=== PATIENT | female | born 1980 | race African-American/Black ===

== ENCOUNTER 2020-01-22 11:15 | Emergency (ER) | payer SELFPAY ==
[~2020-01-22] VITALS: Ht 157.5 cm; Wt 106.6 kg
--- NOTE | 2020-01-22 13:40 | Emergency Department Note ---
History of Present Illnes History of Present Illness Chief Complaint: COVID PUI History of Present Illness This is a 39 year old female who is here for high blood pressure. He states she went to urgent care for COVISIDORO test who sent her here due to elevated blood pressure of 130s/108. The patient denies a history of hypertension. He states for the last 3 days she's had generalized weakness general malaise and not been able to smell or taste anything. She has had a nonproductive cough and chest pain which she describes as "soreness". The chest pain is worse with deep breaths and with range of motion of movement of her shoulders. Denies any shortness of breath. As he diaphoresis. She denies any nausea vomiting. She has no history of diabetes or hypercholesterolemia. No history of any coronary artery disease. Has denies a sore throat, runny nose or congestion Historian: Patient Arrival Mode: Car Correctional Corporal Required: No Onset (how long ago): day(s) Severity: unable to specify Onset quality: gradual Duration (how long): day(s) Timing of current episode: constant Progression: unchanged Chronicity: new Context: Denies recent surgery, Denies recent immobilization, Denies recent travel, Denies trauma/injury Relieving factors: none Exacerbating factors: none Past Medical/Family History Physician Review I have reviewed the patient's past medical and family history. Any updates have been documented here. Past Medical History Recent Fever: No Clinical Suspicion of Infectio: No New/Unexplained Change in Ment: No Past Medical History: Asthma, Cancer Past Surgical History: Hysterectomy Other Surgery: brain surgery for cancer 2003 Social History Smoking Cessation: Never Smoker Counseling Performed: No Alcohol Use: Occasional Any Illegal Drug Use: No Physically hurt or threatened: No Other Any Pre-Existing Lines (PICC,: No Review of Systems Review of Systems Constitutional: Reports malaise, Reports weakness; Denies chills, Denies diaphoresis, Denies fever EENTM: Denies ear discharge, Denies nose congestion, Denies throat pain, Denies throat swelling Cardiovascular: Reports as per HPI, Reports chest pain; Denies edema, Denies palpitations, Denies syncope Respiratory: Reports as per HPI; Denies dyspnea, Denies dyspnea on exertion Gastrointestinal: Reports no symptoms Genitourinary: Reports no symptoms Musculoskeletal: Reports as per HPI Integumentary: Reports no symptoms Neurological: Reports no symptoms Psychological: Reports no symptoms Endocrine: Reports no symptoms Hematological/Lymphatic: Reports no symptoms Review of other systems: All other systems negative Physical Exam Related Data Allergies: Coded Allergies: acetaminophen (Verified Allergy, Unknown, 01/22/20) amoxicillin (Verified Allergy, Unknown, 01/22/20) Triage Vital Signs Vital Signs Date Time Temp Pulse Resp B/P (MAP) Pulse Ox O2 Delivery O2 Flow Rate FiO2 01/22/20 11:32 98.9 72 18 125/74 100 Room Air Physical Exam CONSTITUTIONAL Constitutional: Present well-developed, Present well-nourished HENT HENT: Present normocephalic, Present atraumatic, Present oropharynx clear/moist HENT L/R: Present left TM normal, Present right TM normal, Present left canal normal, Present right canal normal, Present left ext ear normal, Present right ext ear normal EYES Eyes: Reports conjunctivae normal; Denies left eye discharge, Denies right eye discharge NECK Neck: Present ROM normal, Present supple PULMONARY Pulmonary: Present effort normal, Present breath sounds normal; Absent respiratory distress CARDIOVASCULAR Cardiovascular: Present regular rhythm, Present heart sounds normal, Present intact distal pulses, Present capillary refill normal, Present normal rate GASTROINTESTINAL Abdominal: Present soft, Present nontender GENITOURINARY SKIN Skin: Present warm; Absent rash MUSCULOSKELETAL Musculoskeletal: Present ROM normal; Absent edema NEUROLOGICAL Neurological: Present alert, Present oriented x 3 PSYCHOLOGICAL Psychological: Present mood/affect normal Assessment & Plan Medical Decision Making MDM Is over normal blood pressure was the restroom. She was instructed to make a log of her blood pressure readings with the daytime and associated activity and to take the log to her primary care physician. She was told to get a COVID test and self quarantine. Assessment & Plan Final Impression: (1) Viral illness Depart Disposition: HOME, SELF-CARE Last Vital Signs Date Time Temp Pulse Resp B/P (MAP) Pulse Ox O2 Delivery O2 Flow Rate FiO2 01/22/20 11:32 98.9 72 18 125/74 100 Room Air MUSHTAQ KAPOOR MD Jan 22, 2020 13:40
--- OUTSIDE RECORDS SUMMARY | 2020-01-22 21:16 | XMS REPORT ---
Author Author MAXIMILIAN VARGAS Organization Unknown Address Unknown Phone Care Team Providers Care Shine Worker Name Role Phone SAM MICHELLE PP Unavailable Reason for Referral No Reason for Referral was given. History of Present Illness No HPI available. 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 RINSE MOUTH AFTER USE.; Start Date: 03/12/2013 (Active) Allergies and Adverse Reactions * Codeine Derivatives (Active) * Acetaminophen CAPS (Active) * Clindamycin (Active) * Amoxicillin TABS (Active) * Tylenol TABS (Active) Past Medical History * History of Migraine Headache (346.90); (Resolved) * History of Asthma (493.90); (Resolved) Procedures Procedure Procedure Date Date Completed Status Craniotomy Tumor Removal - Complete - - Resolved Tubal Ligation - - Resolved Family History * Family history of Asthma (V17.5); (Active) * Family history of Eczema (Active) * Family history of Diabetes Mellitus (V18.0); (Active) * Family history of Hypertension (V17.49); (Active) * Family history of Heart Disease (V17.49); (Active) * No Family history of Cervical Cancer (Denied) * No Family history of Breast Cancer (Denied) * No Family history of Ovarian Cancer (Denied) * No Family history of Uterine Cancer (Denied) Social History * No History of Alcohol Use (Denied) * No History of Drug Use (Denied) * Never A Smoker (Active) * Never Drank Alcohol (Active) * Never Used Drugs (Active) Treatment Plan * Pap ThinPrep 02/04/2013 Routine * [H] GC /CT PCR 02/04/2013 Routine * [QL] HSV 1/2 IGG, HERPESELECT TYPE SPECIFIC AB 02/04/2013 Routine * [Q] HSV 1/2 IGM AB, IFA (SERUM) 02/04/2013 Routine * EKG (In Office) 03/03/2013 Routine * [QLH] RPR 03/16/2013 Routine * [QH] HIV AB, HIV 1/2, EIA, WITH REFLEXES 03/16/2013 Routine * [QH] HEPATITIS B SURFACE ANTIGEN W/REFL CONFIRM 03/16/2013 Routine * [QLH] HEPATITIS C ANTIBODY 03/16/2013 Routine * [N] 30 Day Event Monitor Recording 03/03/2013 Routine Advance Directives * No Advance Directives available. Encounters * AUDIT 03/18/2013
--- OUTSIDE RECORDS SUMMARY | 2020-01-22 21:16 | XMS REPORT | Continuity of Care Document ---
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 Family history of Ovarian Cancer (Denied) No Family history of Uterine Cancer (Denied) 03/25/2013 [facility] Family history of Asthma (V17.5); (Active) Family history of Eczema (Active) Family history of Diabetes Mellitus (V18.0); (Active) Family history of Hypertension (V17.49); (Active) Family history of Heart Disease (V17.49); (Active) No Family history of Cervical Cancer (Denied) No Family history of Breast Cancer (Denied) No Family history of Ovarian Cancer (Denied) No Family history of Uterine Cancer (Denied) 03/18/2013 [facility] Family history of Asthma (V17.5); (Active) Family history of Eczema (Active) Family history of Diabetes Mellitus (V18.0); (Active) Family history of Hypertension (V17.49); (Active) Family history of Heart Disease (V17.49); (Active) No Family history of Cervical Cancer (Denied) No Family history of Breast Cancer (Denied) No Family history of Ovarian Cancer (Denied) No Family history of Uterine Cancer (Denied) 03/16/2013 [facility] Family history of Asthma (V17.5); (Active) Family history of Eczema (Active) Family history of Diabetes Mellitus (V18.0); (Active) Family history of Hypertension (V17.49); (Active) Family history of Heart Disease (V17.49); (Active) No Family history of Cervical Cancer (Denied) No Family history of Breast Cancer (Denied) No Family history of Ovarian Cancer (Denied) No Family history of Uterine Cancer (Denied) 03/12/2013 [facility] Family history of Asthma (V17.5); (Active) Family history of Eczema (Active) Family history of Diabetes Mellitus (V18.0); (Active) Family history of Hypertension (V17.49); (Active) Family history of Heart Disease (V17.49); (Active) No Family history of Cervical Cancer (Denied) No Family history of Breast Cancer (Denied) No Family history of Ovarian Cancer (Denied) No Family history of Uterine Cancer (Denied) 03/05/2013 [facility] Advance Directives Order Name Results Value Date Source Advance Directives Advance Dir ectives No Advance Directives available. 10/23/2013 [facility] Advance Directives Advance Dir ectives No Advance Directives available. 10/13/2013 [facility] Advance Directives Advance Dir ectives No Advance Directives available. 06/05/2013 [facility] Advance Directives Advance Dir ectives No Advance Directives available. 05/12/2013 [facility] Advance Directives Advance Dir ectives No Advance Directives available. 05/11/2013 [facility] Advance Directives Advance Dir ectives No Advance Directives available. 04/13/2013 [facility] Advance Directives Advance Dir ectives No Advance Directives available. 04/06/2013 [facility] Advance Directives Advance Dir ectives No Advance Directives available. 03/25/2013 [facility] Advance Directives Advance Dir ectives No Advance Directives available. 03/25/2013 [facility] Advance Directives Advance Dir ectives No Advance Directives available. 03/18/2013 [facility] Advance Directives Advance Dir ectives No Advance Directives available. 03/16/2013 [facility] Advance Directives Advance Dir ectives No Advance Directives available. 03/12/2013 [facility] Advance Directives Advance Dir ectives No Advance Directives available. 03/05/2013 [facility] Functional Status No Data Provided for This Section
--- OUTSIDE RECORDS SUMMARY | 2020-01-22 21:16 | XMS REPORT ---
Author Author MAXIMILIAN VARGAS Organization Unknown Address Unknown Phone Care Team Providers Care Tray Line Supervisor Name Role Phone SAM MICHELLE PP Unavailable Reason for Referral No Reason for Referral was given. History of Present Illness No HPI available. 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 RINSE MOUTH AFTER USE.; Start Date: 03/12/2013 (Active) * NexIUM 40 MG Oral Capsule Delayed Release; Start Date: 04/06/2013 (Active) Allergies and Adverse Reactions * Codeine Derivatives (Active) * Acetaminophen CAPS (Active) * Clindamycin (Active) * Amoxicillin TABS (Active) * Tylenol TABS (Active) Past Medical History * History of Migraine Headache (346.90); (Resolved) * History of Asthma (493.90); (Resolved) * History of Esophageal Reflux (530.81); (Resolved) Procedures Procedure Procedure Date Date Completed [...] History of Drug Use (Denied) * Never Drank Alcohol (Active) * Never A Smoker (Active) * Never Used Drugs (Active) Treatment [...] No Advance Directives available. Encounters * AUDIT 04/13/2013
--- OUTSIDE RECORDS SUMMARY | 2020-01-22 21:16 | XMS REPORT ---
Author Author MAXIMILIAN VARGAS Organization Unknown Address Unknown Phone Care Team Providers Care Upholstery Tech Name Role Phone SAM MICHELLE PP Unavailable [...] No Advance Directives available. Encounters * AUDIT 04/06/2013 * EST, Provider: JEREMÍAS CHANDRA, Status: Daniele, Time: 10:20 AM 04/10/2013
--- OUTSIDE RECORDS SUMMARY | 2020-01-22 21:16 | XMS REPORT | Clinical Summary ---
Author Author [facility]aceuticalsS[facility] Address Unknown Phone Unavailable Care Team Providers Care Aeronautical Design Engineer Name Role Phone Renay Mckoy MD PCP [phone] Allergies Comments Active Allergy Reactions Severity Noted Date Amoxicillin Hives 11/30/2016 Codeine Hives 11/30/2016 Acetaminophen Hives 11/30/2016 Medications End Date Status Medication Sig Dispensed Refills Start Date Active fluticasone (FLOVENT HFA) Inhale 2 1 Inhaler 1 44 mcg/actuation inhaler puffs by 8 mouth via inhaler 2 (two) times daily Rinse mouth after each use. Active levalbuterol (XOPENEX 2 puffs 6 qh 1 Inhaler 5 HFA) 45 mcg/actuation PRN. 8 inhalerIndications: Mild intermittent asthma without complication Active predniSONE (DELTASONE) 20 40mg daily 8 tablet 0 MG tabletIndications: for 3 days, 8 Hives 20mg daily for 2 days then stop. Active Problems Problem Noted Date Vitamin D deficiency 08/27/2017 Gastroesophageal reflux disease without esophagitis 12/12/2016 Mild intermittent asthma 12/12/2016 Obesity (BMI 35.0-39.9 without comorbidity) 12/13/19 17 Seasonal allergic rhinitis due to pollen 12/12/2016 Encounters Care Team Description Date Type Specialty Renay Mckoy MD call for an appt. 01/22/2020 Telephone Internal Medicine after 01/21/2019 Family History Medical History Relation Name Comments Diabetes Maternal Aunt Heart disease Maternal Aunt Hypertension Maternal Aunt Diabetes Maternal Uncle Heart disease Maternal Uncle Hypertension Maternal Uncle Diabetes Mother Heart disease Mother Hypertension Mother Cancer Paternal Aunt Cancer Paternal Uncle Asthma Son Relation Name Status Comments Father Maternal Aunt Alive Maternal Grandfather Maternal Grandmother Maternal Uncle Alive Mother Alive Paternal Aunt Alive Paternal Grandfather Paternal Grandmother Paternal Uncle Alive Son Alive Social History Date Tobacco Use Types Packs/Day Years Used Never Smoker Smokeless Tobacco: Never Used Alcohol Use Drinks/Week oz/Week Comments No Sex Assigned at Date Recorded Not on file Industry Job Start Date Occupation Not on file Not on file Not on file Travel End Travel History Travel Start No recent travel history available. Last Filed Vital Signs Not on file Plan of Treatment Health Maintenance Due Date Last Done Comments PNEUMOCOCCAL VACCINE 2-64 11/15/1985 YEARS AT RISK (1 of 1 - PPSV23) LIPID PANEL 1999 CERVICAL CANCER SCREENING 11/15/2000 PAP ONLY (Age 21-65) INFLUENZA VACCINE (#1) 2020 Results Not on fileafter 01/21/2019 Insurance Payer Benefit Subscriber ID Type Phone Address Plan / Group [employer] - [employer] - xxxxxxxxx Comm SPECIAL [employer] TS
--- OUTSIDE RECORDS SUMMARY | 2020-01-22 21:16 | XMS REPORT ---
Author MAXIMILIAN Garber Organization Unknown Address Unknown Phone Care Team Providers Care Tool Room Lathe Operator Name Role Phone JEREMÍAS CHANDRA PP Unavailable Reason for Referral No Reason for Referral was given. History of Present Illness No HPI available. 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); (Active) * Routine Gynecological Exam With Cervical Pap Smear (V72.31); (Active) * Visit For: Screening Exam STD (V74.5); (Active) * Dysmenorrhea (625.3); (Active) * Palpitations (785.1); (Active) * Colonoscopy (Fiberoptic) Screening (V76.51); (Active) Medication * Topiramate 50 MG Oral Tablet; TAKE 1 TABLET TWICE DAILY.; Start Date: 03/04/2013; End Date: (Active) * Albuterol Sulfate (2.5 MG/3ML) 0.083% Inhalation Nebulization Solution; USE DIRECTED.; Start Date: 03/03/2013 (Active) * Flovent Diskus 50 MCG/BLIST Inhalation Aerosol Powder Breath Activated; USE ONE INHALATION TWICE A DAY; Start Date: 03/03/2013; End Date: (Active) Allergies and Adverse Reactions * Codeine [...] of Uterine Cancer (Denied) Social History * Never A Smoker (Active) * No History of Alcohol Use (Denied) * No History of Drug Use (Denied) Treatment Plan * Pap ThinPrep 02/04/2013 Routine * [H] GC /CT PCR 02/04/2013 Routine * [QL] HSV 1/2 IGG, HERPESELECT TYPE SPECIFIC AB 02/04/2013 Routine * [Q] HSV 1/2 IGM AB, IFA (SERUM) 02/04/2013 Routine * EKG (In Office) 03/03/2013 Routine * [N] 30 Day Event Monitor Recording 03/03/2013 Routine Advance Directives * No Advance Directives available. Encounters * AUDIT 03/05/2013 * EPG, Provider: MADELINE/,PRE-OP, Status: Daniele, Time: 1:00 PM 03/09/2013 * EST, Provider: ENRIQUE CABREAR, Status: Daniele, Time: 10:30 AM 04/28/2013
--- OUTSIDE RECORDS SUMMARY | 2020-01-22 21:16 | XMS REPORT ---
Author Author MAXIMILIAN VARGAS Organization Unknown Address Unknown Phone Care Team Providers Care Web Database Developer Name Role Phone SAM MICHELLE PP Unavailable [...] No Advance Directives available. Encounters * AUDIT 03/16/2013 * EST, Provider: ENRIQUE CABRERA, Status: Daniele, Time: 10:30 AM 04/28/2013
--- OUTSIDE RECORDS SUMMARY | 2020-01-22 21:16 | XMS REPORT ---
Author Author MAXIMILIAN GURROLA Organization Unknown Address Unknown Phone Care Team Providers Care Dehydrator Tender Name Role Phone IZABELA ERIK PP Unavailable Reason for Referral No Reason [...] (Metrorrhagia) (626.6); (Active) * Dizziness (780.4); (Active) Medication * Topiramate 50 MG Oral [...] No Advance Directives available. Encounters * AUDIT 03/25/2013 * LOTUS, Provider: MADELINE/,PRE-OP, Status: Pen, Time: 1:20 PM 03/30/2013
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
--- OUTSIDE RECORDS SUMMARY | 2020-01-22 21:17 | XMS REPORT ---
Author Author MAXIMILIAN Phelps Organization Unknown Address Unknown Phone Care Team Providers Care Manager Inventory Control Name Role Phone Sohail Phelps PP Unavailable Reason for Referral No Reason for Referral was given. History of Present Illness No HPI available. Problems * Vaginal Candidiasis (112.1); (Active) * Normal [...] Visit For: Preoperative Exam (V72.84); (Active) * Visit For: Postsurgical Exam (V67.00); (Active) * Migraine Headache (346.90); (Active) * Skin: A Rash (782.1); (Active) Medication * Topiramate 50 MG Oral Tablet; TAKE 1 TABLET TWICE DAILY.; Start Date: 03/04/2013; End Date: (Active) * Pulmicort Flexhaler 180 MCG/ACT Inhalation Aerosol Powder Breath Activated; INHALE 1 PUFF TWICE DAILY. RINSE MOUTH AFTER USE.; Start Date: 03/12/2013 (Active) * NexIUM 40 MG Oral Capsule Delayed Release; Start Date: 04/06/2013 (Active) * Ibuprofen 800 MG Oral Tablet; TAKE 1 TABLET EVERY 8 HOURS NEEDED.; Start Date: 04/24/2013; End Date: (Active) * Sertraline HCl 50 MG Oral Tablet; Start Date: 07/23/2013 (Active) * Topiramate 50 MG Oral Tablet; TAKE 1 TABLET EVERY 12 HOURS; Start Date: 07/23/2013; End Date: (Active) * Permethrin 5 % External Cream; MASSAGE INTO SKIN FROM HEAD TO SOLES OF FEET. WASH OFF AFTER 8-14 HOURS; Start Date: 10/09/2013; End Date: (Active) * HydrOXYzine HCl 25 MG Oral Tablet; TAKE 1 TABLET EVERY 8 HOURS PRN itching; Start Date: 10/09/2013; End Date: (Active) Allergies and Adverse Reactions [...] - Resolved Tubal Ligation - - Resolved Laparoscopy With Total Hysterectomy - - Resolved Salpingectomy - - Resolved Family History * Family [...] No Advance Directives available. Encounters * AUDIT 10/23/2013
--- OUTSIDE RECORDS SUMMARY | 2020-01-22 21:17 | XMS REPORT ---
Author Author MAXIMILIAN KAM Organization Unknown Address Unknown Phone Care Team Providers Care Press Operator Automatic Name Role Phone NEGIN LOUIE PP Unavailable Reason for Referral No Reason [...] * Visit For: Postsurgical Exam (V67.00); (Active) Medication * Topiramate 50 MG Oral [...] NEEDED.; Start Date: 04/24/2013; End Date: (Active) Allergies and Adverse Reactions [...] No Advance Directives available. Encounters * AUDIT 05/11/2013
--- OUTSIDE RECORDS SUMMARY | 2020-01-22 21:17 | XMS REPORT | Summary of Care ---
Author Author [facility] Outpatient Imaging [facility]mer[facility] Outpatient Imaging [facility] ro[facility]y Address Unknown Phone Unavailable Encounter [facility] Gabriele(FIN) [id number] Date(s): 08/21/17 - 08/21/17 [facility] Outpatient Imaging [place] [address] [place] [address] [phone] Encounter Diagnosis Encounter for screening mammogram for malignant neoplasm of breast (Final) - 08/23/17 Discharge Disposition: Home or Self Care Attending Physician: Landon West MD Vital Signs No data available for this section Problem List Condition Effective Dates Status Health Status Informan t Abdominal Active pain(Confirmed) Anal Active fissure(Confirmed) Asthma(Confirmed) Active Diverticulum(Confirm Resolved ed) Fibroids(Confirmed) Active GERD - Active Gastro-esophageal reflux disease(Confirmed) Hemorrhoids(Confirme Active d) Internal Resolved hemorrhoid(Confirmed ) Migraine(Confirmed) Active Allergies, Adverse Reactions, Alerts Substance Reaction Severity Status codeine Active clindamycin Hives Severe Active amoxicillin Active Tylenol Active Medications No data available for this section Results No data available for this section Immunizations Given and Recorded Vaccine Date Status Refusal Reason pneumococcal 23-valent vaccine 04/11/13 Given influenza virus vaccine, inactivated 04/11/13 G iven Procedures Procedure Date Related Diagnosis Body Site Status CHANDANA - Total abdominal hysterectomy 04/10/13 Com pleted 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 2Patient is single with three children. 3Patient denies alcohol use. Assessment and Plan No data available for this section
--- OUTSIDE RECORDS SUMMARY | 2020-01-22 21:17 | XMS REPORT ---
Author Author MAXIMILIAN CHANDRA Organization Unknown Address Unknown Phone Care Team Providers Care Felt Hat Flanging Operator Name Role Phone JEREMÍAS CHANDRA PP [...] No Advance Directives available. Encounters * AUDIT 05/12/2013
--- OUTSIDE RECORDS SUMMARY | 2020-01-22 21:17 | XMS REPORT ---
Author Author MAXIMILIAN PERRY Organization Unknown Address Unknown Phone Care Team Providers Care Wellness Assistant Name Role Phone ORLANDO, JOMAR PP Unavailable Reason for Referral No Reason [...] [QLH] HEPATITIS C ANTIBODY 03/16/2013 Routine * [QLH] CBC (INCLUDES DIFF/PLT) 03/25/2013 Routine * [N] 30 Day Event Monitor Recording 03/03/2013 Routine Advance Directives * No Advance Directives available. Encounters * AUDIT 03/25/2013 * JIMMYG, Provider: OB/,PRE-OP, Status: Pen, Time: 1:20 PM 03/30/2013
--- OUTSIDE RECORDS SUMMARY | 2020-01-22 21:17 | XMS REPORT ---
Author Author Admin, [employer] Organization Unknown Address Unknown Phone Unavailable PROBLEMS Condition Status Date Provider Notes Acute Stress Disorder active Leonel Masters Generalized anxiety disorder active Leonel Masters NEED PROPH VACCINATION W/UNSPEC COMB VACCINE active 7 Aurdis Harley MAJOR DEPRESSIVE DISORDER, RCR, MODERATE active Leonel Masters ASTHMA active Leonel Masters HEMORRHOIDS, HX OF active Leonel Masters GERD active Leonel Masters COMMON MIGRAINE active Leonel Masters NEED PROPH VACCINATION W/UNSPEC COMB VACCINE active 7 Aurdis Harley ENCOUNTERS Date Type Provider Location Encounter Diagn osis - Ambulatory Encounter Brittany Gillis [facility] UNK - Ambulatory Encounter Leonel Oneals Jg en Masters Ryan Elliott [facility] UNK - Ambulatory Encounter Leonel Masters Jg en Masters Ryan Elliott [facility] UNK - Ambulatory [facility] - Ambulatory Encounter Ava Adalberto [facility] UNK - Ambulatory Encounter [facility] UNK - Ambulatory Encounter Elicia sellers [facility] UNK - Ambulatory Encounter Tameka Fuentes [facility] UNK - Ambulatory Encounter Leonel s Leonel guerrero [facility] UNK - Ambulatory Encounter Leonel Masters K en Masters Ryan Grahammez [facility] Generalized anxiety disorder Acute Stress Disorder - Ambulatory Encounter Elicia sellers [facility] Contact [facility] UNK - Ambulatory Encounter Roya Muller Martha [facility] Contact [facility] UNK - Ambulatory Encounter Beena Lamb [facility] Contact Center UNK - Ambulatory Encounter Leonel Masters Jg en Masters Tameka Welsh [facility] UNK - Ambulatory Encounter Leonel Masters Jg en Masters Ale [facility] UNK - Ambulatory Encounter Leonel Masters Jg en Masters Jessica Parker [facility] UNK - Ambulatory Encounter Aurdis Harley Aurdis Harley [employer] [facility] UNK - Ambulatory Encounter Aurdis Harley Aur dis Harley [facility] NEED PROPH VACCINATION W/UNSPEC COMB VAC CINE - Ambulatory Encounter Leonel Masters Jg en Masters Maura Valdez [facility] UNK - Ambulatory Encounter Torreyerholden [facility] UNK - Ambulatory Encounter Leonel Masters Jg en Masters Saritha Khan [facility] UNK - Ambulatory Encounter Edilberto Marquez [facility] UNK - Ambulatory Encounter Ken tidwell [facility] UNK - Ambulatory Encounter Leonel Masters Jg en Masters LinkLog[employer]ba [facility] UNK - Ambulatory Encounter Leonel Masters Jg en Masters Neno Strange [facility] UNK - Ambulatory Encounter Samina Goff [facility] UNK - Ambulatory Encounter Leonel Gregorio en Masters Nenogrey Strange [facility] UNK - Ambulatory Encounter Edilberto Marquez [facility] UNK - Ambulatory Encounter Ken Lamb [facility] UNK - Ambulatory Encounter Leonel Gregorio en Masters LinkLogbeba [facility] UNK - Ambulatory Encounter Leonel Gregorio en Masters Bruno Tobar [facility] UNK - Ambulatory Encounter Leonel guerrero [facility] UNK - Ambulatory Encounter Leonel Gregorio en Masters Tameka Welsh [facility] COMMON MIGRAINEGERDHEMORRHOI DS, HX OFASTHMAMAJOR DEPRESSIVE DISORDER, RCR, MODERATE - Ambulatory Encounter Bruno Tobar [facility] UNK - Ambulatory Encounter Aurdis Harley Aur dis Harley [facility] NEED PROPH VACCINATION W/UNSPEC COMB VAC CINE VITAL SIGNS No Information Available ALLERGIES Allergy Name Onset Date Reaction Criticality Status AMOXICILLIN "rash" Unable to assess criticality active CODEINE "rash" Unable to assess criticality active TYLENOL "rash all over my body" Unable to assess criticality active REASON FOR REFERRAL No Information Available RESULTS No Information Available HISTORY OF IMMUNIZATIONS No Information Available HISTORY OF MEDICATION USE Medication Instructions Dates Provider Comments TRAZODONE HCL 50 MG ORAL TABLET Take 1/2 to 1 at bedtime as needed for sleep. Leonel Joseph ZOLOFT 50 MG ORAL TABLET Take one half tablet at bedt abigail for 7 days then take one tablet at bedtime thereafter. Leonel Joseph NEXIUM 40 MG ORAL PACKET one barnes Leonel Joseph pre scribed by pcp for gerd PULMICORT FLEXHALER 180 MCG/ACT INHALATION AEROSOL POW DEB BREATH ACTIVATED one puff weekly Leonel Joseph prescribed by pcp fo r asthma TOPAMAX 50 MG ORAL TABLET Take one daily [employer] SOCIAL HISTORY Date Observation Value Provider smoking status never smoker [employer]" social history E&M Dating. Raised by avery sousa and maternal grandparents. MGM's are . Biological father when P was 2yo. Has two sisters and two brothers. Has three children (18yo, 12yo and 10yo). Has a boyfriend. Been together for 1 year. Not homeless. Lives with 3 children (ages 21, 16, 13) and fiance. Not employed. Unemployed. Highest education level: high school graduate. Gets SSI checks for children. Gender of partner(s): male. Enjoys playing volleyball, singing and dancing. [employer] Secret " social history reviewed E&M reviewed today [employer] smoking status never smoker Leonel [employer]" social history E&M Dating. Raised by avery sousa and maternal grandparents. MGM's are . Biological father when P was 2yo. Has two sisters and two brothers. Has three children (18yo, 12yo and 10yo). Has a boyfriend. Been together for 1 year. Not homeless. Lives with 3 children (ages 21, 16, 13) and fiance. Not employed. Unemployed. Highest education level: high school graduate. Gets SSI checks for children. Gender of partner(s): male. Enjoys playing volleyball, singing and dancing. [employer] Secret " social history reviewed E&M reviewed today Leonel [employer] " drug use, illicit Never [employer]'s Secret " alcohol use Never [employer]'s Secret " home/family situation, assessment Lives with 3 children (ages 21, 16, 13) and fiance. [employer] Secret " smoking status never smoker Leonel [employer]" social history E&M Dating. Raised by avery sousa and maternal grandparents. MGM's are . Biological father when P was 2yo. Has two sisters and two brothers. Has three children (18yo, 12yo and 10yo). Has a boyfriend. Been together for 1 year. Not homeless. Lives with 3 children (ages 21, 16, 13) and fiance. Not employed. Unemployed. Highest education level: high school graduate. Gets SSI checks for children. Gender of partner(s): male. Enjoys playing volleyball, singing and dancing. Leonel [employer]" social history reviewed E&M reviewed today [employer] Secret smoking status never smoker Leonel [employer]" social history E&M Dating. Raised by avery sousa and maternal grandparents. MGM's are . Biological father when P was 2yo. Has two sisters and two brothers. Has three children (18yo, 12yo and 10yo). Has a boyfriend. Been together for 1 year. Not homeless. Lives with 3 children (ages 18, 12, 10) and BF. Not employed. Unemployed. Highest education level: high school graduate. Gets SSI checks for 18, 12 year old children. Has a discrimination lawsuit against former employer. Gender of partner(s): male. Enjoys playing volleyball, singing and dancing. Solum" social history reviewed E&M reviewed today [employer] Secret smoking status never smoker Leonel [employer] history E&M Dating. Raised by avery sousa and maternal grandparents. MGM's are . Biological father when P was 2yo. Has two sisters and two brothers. Has three children (18yo, 12yo and 10yo). Has a boyfriend. Been together for 1 year. Not homeless. Lives with 3 children (ages 18, 12, 10) and BF. Not employed. Unemployed. Highest education level: high school graduate. Gets SSI checks for 18, 12 year old children. Has a discrimination lawsuit against former employer. Gender of partner(s): male. Enjoys playing volleyball, singing and dancing. [employer]um" social history reviewed E&M reviewed today [employer]'s Secret smoking status never smoker [facility] history E&M Dating. Raised by vaery sousa and maternal grandparents. MGM's are . Biological father when P was 2yo. Has two sisters and two brothers. Has three children (18yo, 12yo and 10yo). Has a boyfriend. Been together for 1 year. Not homeless. Lives with 3 children (ages 18, 12, 10) and BF. Not employed. Unemployed. Highest education level: high school graduate. Gets SSI checks for 18, 12 year old children. Has a discrimination lawsuit against former employer. Gender of partner(s): male. Enjoys playing volleyball, singing and dancing. [employer]um" social history reviewed E&M reviewed today [employer] Secret smoking status never smoker Leonel [employer]" social history E&M Dating. Raised by avery sousa and maternal grandparents. MGM's are . Biological father when P was 2yo. Has two sisters and two brothers. Has three children (18yo, 12yo and 10yo). Has a boyfriend. Been together for 1 year. Not homeless. Lives with 3 children (ages 18, 12, 10) and BF. Not employed. Unemployed. Highest education level: high school graduate. Gets SSI checks for 18, 12 year old children. Has a discrimination lawsuit against former employer. Gender of partner(s): male. Enjoys playing volleyball, singing and dancing. [employer] Secret " social history reviewed E&M reviewed today [employer]'s Secret smoking status never smoker [facility] history E&M Dating. Raised by avery sousa and maternal grandparents. MGM's are . Biological father when P was 2yo. Has two sisters and two brothers. Has three children (18yo, 12yo and 10yo). Has a boyfriend. Been together for 1 year. Not homeless. Lives with 3 children (ages 18, 12, 10) and BF. Not employed. Unemployed. Highest education level: high school graduate. Gets SSI checks for 18, 12 year old children. Has a discrimination lawsuit against former employer. Gender of partner(s): male. Enjoys playing volleyball, singing and dancing. [employer]" social history reviewed E&M reviewed today [employer]'s Secret smoking status never smoker [facility] history E&M Dating. Raised by avery sousa and maternal grandparents. MGM's are . Biological father when P was 2yo. Has two sisters and two brothers. Has three children (18yo, 12yo and 10yo). Has a boyfriend. Been together for 1 year. Not homeless. Lives with 3 children (ages 18, 12, 10) and BF. Not employed. Unemployed. Highest education level: high school graduate. Gets SSI checks for 18, 12 year old children. Has a discrimination lawsuit against former employer. Gender of partner(s): male. Enjoys playing volleyball, singing and dancing. Leonel Joseph" social history reviewed E&M reviewed today Leonel Joseph social history reviewed E&M reviewed today Torrey Marquez" social history E&M Dating. Raised by mo m and maternal grandparents. MGM's are . Biological father when P was 2yo. Has two sisters and two brothers. Has three children (18yo, 12yo and 10yo). Has a boyfriend. Been together for 1 year. Not homeless. Lives with 3 children (ages 18, 12, 10) and BF. Not employed. Unemployed. Highest education level: high school graduate. Gets SSI checks for 18, 12 year old children. Has a discrimination lawsuit against former employer. Gender of partner(s): male. Enjoys playing volleyball, singing and dancing. Edilberto Marquez " home/family situation, assessment Lives with 3 children (ages 18, 12, 10) and BF. Edilberto Marquez " family support Raised by mom and ma ternal grandparents. MGM's are . Biological father when P was 2yo. Has two sisters and two brothers. Has three children (18yo, 12yo and 10yo). Has a boyfriend. Been together for 1 year. Edilberto Marquez smoking status never smoker Leonel Joseph" social history reviewed E&M reviewed today Leonel Joseph drug use, illicit Never Leonel Joseph " alcohol use Never Leonel Joseph " smoking status never smoker Leonel Joseph " Occupation #1 Unemployed Leonel Joseph " patient considered to be homeless No Leonel Joseph " family support Lives with 3 children (ages 18, 12, 10) and BF Leonel Oneals FUNCTIONAL STATUS No Information Available MENTAL STATUS Date Observation Value Provider mental status assessment, judgment good Leonel Joseph " insight (mental status exam) good Leonel Joseph " Mental Status Exam: intelligence adequat e fund of information, intact memory processes, oriented to person, oriented to place, oriented to time, oriented to situation, oriented to reality Leonel Joseph " hallucinations none Leonel Joseph " thought content (mental status exam) (E&M) lucid Leonel Masters " mental status assessment, process able to abstra ct, goal-directed, logical Leonel Masters " mental status assessment, sensorium alert, atten tive, clear Leonel Masters " affect (mental status exam) congruent, e uthymic, normal intensity, normal range Leonel Masters " mood (mental status exam) pleasant Leonel Ma sters " mental status assessment, speech activit y normal flow, normal pace, normal pressure, normal rate, normal tone, normal volume, spontaneous Leonel Masters " mental status assessment, motor activity normal gait, normal posture Leonel Masters " behavior (mental status exam) appropriat e, candid, cooperative, good eye contact, polite, responsive Leonel Masters " mental appearance (mental status exam) a dequate hygiene, appropriate dress, looks like stated age, layton Castaneda Masters mental status assessment, judgment good Leonel Masters " insight (mental status exam) good Leonel Masters " Mental Status Exam: intelligence adequat e fund of information, intact memory processes, oriented to person, oriented to place, oriented to time, oriented to situation, oriented to reality Leonel Masters " hallucinations none Leonel Masters " thought content (mental status exam) (E&M) lucid Leonel Masters " mental status assessment, process able to abstra ct, goal-directed, logical Leonel Masters " mental status assessment, sensorium alert, atten tive, clear Leonel Masters " affect (mental status exam) congruent, e uthymic, normal intensity, normal range Leonel Masters " mood (mental status exam) pleasant Leonel Ma sters " mental status assessment, speech activit y normal flow, normal pace, normal pressure, normal rate, normal tone, normal volume, spontaneous Leonel Masters " mental status assessment, motor activity normal gait, normal posture Leonel Masters " behavior (mental status exam) appropriat e, candid, cooperative, good eye contact, polite, responsive Leonel Masters " mental appearance (mental status exam) a dequate hygiene, appropriate dress, looks like stated age, layton Castaneda Masters mental status assessment, judgment good Leonel Masters " insight (mental status exam) good Leonel Masters " Mental Status Exam: intelligence adequat e fund of information, intact memory processes, oriented to person, oriented to place, oriented to time, oriented to situation, oriented to reality Leonel Masters " hallucinations none Leonel Masters " thought content (mental status exam) (E&M) lucid Leonel Masters " mental status assessment, process able to abstra ct, goal-directed, logical Leonel Masters " mental status assessment, sensorium alert, atten tive, clear Leonel Masters " affect (mental status exam) congruent, e uthymic, normal intensity, normal range Leonel Masters " mood (mental status exam) pleasant Leonel Ma sters " mental status assessment, speech activit y normal flow, normal pace, normal pressure, normal rate, normal tone, normal volume, spontaneous Leonel Masters " mental status assessment, motor activity normal gait, normal posture Leonel Masters " behavior (mental status exam) appropriat e, candid, cooperative, good eye contact, polite, responsive Leonel Masters " mental appearance (mental status exam) a dequate hygiene, appropriate dress, looks like stated age, neat Leonel Masters " anxiety worry a lot, sleep disturbance, restlessness, irritability Leonel Masters mental status assessment, judgment good Leonel Masters " insight (mental status exam) good Leonel Masters " Mental Status Exam: intelligence adequat e fund of information, intact memory processes, oriented to person, oriented to place, oriented to time, oriented to situation, oriented to reality Leonel Masters " hallucinations none Leonel Masters " thought content (mental status exam) (E&M) lucid Leonel Masters " mental status assessment, process able to abstra ct, goal-directed, logical Leonel Masters " mental status assessment, sensorium alert, atten tive, clear Leonel Masters " affect (mental status exam) congruent, e uthymic, normal intensity, normal range Leonel Masters " mood (mental status exam) pleasant Leonel Nicole sters " mental status assessment, speech activit y normal flow, normal pace, normal pressure, normal rate, normal tone, normal volume, spontaneous Leonel Masters " mental status assessment, motor activity normal gait, normal posture Leonel Masters " behavior (mental status exam) appropriat e, candid, cooperative, good eye contact, polite, responsive Leonel Masters " mental appearance (mental status exam) a dequate hygiene, appropriate dress, looks like stated age, neat Leonel Masters mood (mental status exam) pleasant Leonel Nicole sters " mental status assessment, judgment good Leonel Masters " insight (mental status exam) good Leonel Masters " Mental Status Exam: intelligence adequat e fund of information, intact memory processes, oriented to person, oriented to place, oriented to time, oriented to situation, oriented to reality Leonel Masters " hallucinations none Leonel Masters " thought content (mental status exam) (E&M) lucid Leonel Masters " mental status assessment, process able to abstra ct, goal-directed, logical Leonel Masters " mental status assessment, sensorium alert, atten tive, clear Leonel Masters " affect (mental status exam) congruent, e uthymic, normal intensity, normal range Leonel Masters " mental status assessment, speech activit y normal flow, normal pace, normal pressure, normal rate, normal tone, normal volume, spontaneous Leonel Masters " mental status assessment, motor activity normal gait, normal posture Leonel Masters " behavior (mental status exam) appropriat e, candid, cooperative, good eye contact, polite, responsive Leonel Masters " mental appearance (mental status exam) a dequate hygiene, appropriate dress, looks like stated age, neat Leonel Masters mental status assessment, judgment good Leonel Masters " insight (mental status exam) good Leonel Masters " Mental Status Exam: intelligence adequat e fund of information, intact memory processes, oriented to person, oriented to place, oriented to time, oriented to situation, oriented to reality Leonel Masters " hallucinations none Leonel Masters " thought content (mental status exam) (E&M) lucid Leonel Masters " mental status assessment, process able to abstra ct, goal-directed, logical Leonel Masters " mental status assessment, sensorium alert, atten tive, clear Leonel Masters " affect (mental status exam) congruent, e uthymic, normal intensity, normal range Leonel Masters " mood (mental status exam) worried Leonel Nicole sters " mental status assessment, speech activit y normal flow, normal pace, normal pressure, normal rate, normal tone, normal volume, spontaneous Leonel Masters " mental status assessment, motor activity normal gait, normal posture Leonel Masters " behavior (mental status exam) appropriat e, candid, cooperative, good eye contact, polite, responsive Leonel Masters " mental appearance (mental status exam) a dequate hygiene, appropriate dress, looks like stated age, neat Leonel Masters mental status assessment, judgment good Leonel Masters " insight (mental status exam) good Leonel Masters " Mental Status Exam: intelligence adequat e fund of information, intact memory processes, oriented to person, oriented to place, oriented to time, oriented to situation, oriented to reality Leonel Masters " hallucinations none Leonel Masters " thought content (mental status exam) (E&M) lucid Leonel Masters " mental status assessment, process able to abstra ct, goal-directed, logical Leonel Masters " mental status assessment, sensorium alert, atten tive, clear Leonel Masters " affect (mental status exam) congruent, e uthymic, normal intensity, normal range Leonel Masters " mood (mental status exam) happy Leonel Nicole sters " mental status assessment, speech activit y normal flow, normal pace, normal pressure, normal rate, normal tone, normal volume, spontaneous Leonel Masters " mental status assessment, motor activity normal gait, normal posture Leonel Masters " behavior (mental status exam) appropriat e, candid, cooperative, good eye contact, polite, responsive Leonel Masters " mental appearance (mental status exam) a dequate hygiene, appropriate dress, looks like stated age, neat Leonel Masters mental status assessment, judgment good Edilberto Marquez " insight (mental status exam) good Chao Marquez " Mental Status Exam: intelligence adequat e fund of information, intact memory processes, oriented to person, oriented to place, oriented to time, oriented to situation, oriented to reality Edilberto Marquez " hallucinations none Windelanalyon Virgil t " thought content (mental status exam) (E&M) lucid Edilberto Marquez " mental status assessment, process able to abstra ct, goal-directed, logical Edilberto Marquez " mental status assessment, sensorium alert, atten tive, clear Edilberto Marquez " affect (mental status exam) congruent, e uthymic, normal intensity, normal range Edilberto Marquez " mood (mental status exam) happy Scooter Marquez " mental status assessment, speech activit y normal flow, normal pace, normal pressure, normal rate, normal tone, normal volume, spontaneous Scooterlyon Jimmy " mental status assessment, motor activity normal gait, normal posture Edilberto Marquez " behavior (mental status exam) appropriat e, candid, cooperative, good eye contact, polite, responsive Edilberto Marquez " mental appearance (mental status exam) a dequate hygiene, appropriate dress, looks like stated layton ravi mental status assessment, judgment good Leonel Masters " insight (mental status exam) good Leonel Masters " Mental Status Exam: intelligence adequat e fund of information, intact memory processes, oriented to person, oriented to place, oriented to time, oriented to situation, oriented to reality Leonel Masters " hallucinations none Leonel Masters " thought content (mental status exam) (E&M) lucid Leonel Masters " mental status assessment, process able to abstra ct, goal-directed, logical Leonel Masters " mental status assessment, sensorium alert, atten tive, clear Leonel Masters " affect (mental status exam) congruent, e uthymic, normal intensity, normal range Leonel Masters " mood (mental status exam) happy Leonel Nicole modoys " mental status assessment, speech activit y normal flow, normal pace, normal pressure, normal rate, normal tone, normal volume, spontaneous Leonel Masters " mental status assessment, motor activity normal gait, normal posture Leonel Masters " behavior (mental status exam) appropriat e, candid, cooperative, good eye contact, polite, responsive Leonel Masters " mental appearance (mental status exam) a dequate hygiene, appropriate dress, looks like stated layton ravis mental status assessment, judgment good Leonel Masters " insight (mental status exam) good Leonel Masters " Mental Status Exam: intelligence adequat e fund of information, intact memory processes, oriented to person, oriented to place, oriented to time, oriented to situation, oriented to reality Leonel Masters " hallucinations none Leonel Masters " thought content (mental status exam) (E&M) lucid Leonel Masters " mental status assessment, process able to abstra ct, goal-directed, logical Leonel Masters " mental status assessment, sensorium alert, atten tive, clear Leonel Masters " affect (mental status exam) congruent, e uthymic, normal intensity, normal range Leonel Masters " mood (mental status exam) happy Leonel Nicole moodys " mental status assessment, speech activit y normal flow, normal pace, normal pressure, normal rate, normal tone, normal volume, spontaneous Leonel Masters " mental status assessment, motor activity normal gait, normal posture Leonel Masters " behavior (mental status exam) appropriat e, candid, cooperative, good eye contact, polite, responsive Leonel Oneals " mental appearance (mental status exam) a dequate hygiene, appropriate dress, looks like stated age, layton Castaneda Masters mental status assessment, judgment good Scooterholden Marquez " insight (mental status exam) good Win meghan Marquez " Mental Status Exam: intelligence adequat e fund of information, intact memory processes, oriented to person, oriented to place, oriented to time, oriented to situation, oriented to reality Edilberto Marquez " hallucinations none Rebecaon Virgil t " thought content (mental status exam) (E&M) lucid Scooterholden Marquez " mental status assessment, process able to abstra ct, goal-directed, logical Scooterholden Marquez " mental status assessment, sensorium alert, atten tive, clear Scooterholden Marquez " affect (mental status exam) congruent, e uthymic, normal intensity, normal range Edilberto Marquez " mood (mental status exam) happy Scooter de [place] Marquez " mental status assessment, speech activit y normal flow, normal pace, normal pressure, normal rate, normal tone, normal volume, spontaneous Scooterholden Marquez " mental status assessment, motor activity normal gait, normal posture Rebecaanita Marquez " behavior (mental status exam) appropriat e, candid, cooperative, good eye contact, polite, responsive Rebecaanita Marquez " mental appearance (mental status exam) a dequate hygiene, appropriate dress, looks like stated age, layton Scooterholden Marquez " anxiety worry a lot, sleep disturbance, irritability Edilberto Marquez mental status assessment, judgment good Leonel Masters " insight (mental status exam) good Leonel Masters " Mental Status Exam: intelligence adequat e fund of information, intact memory processes, oriented to person, oriented to place, oriented to time, oriented to situation, oriented to reality, average Leonel Masters " hallucinations none Leonel Masters " thought content (mental status exam) (E&M) lucid Leonel Masters " mental status assessment, process able to abstra ct, goal-directed, logical Leonel Masters " mental status assessment, sensorium alert, atten tive, clear Leonel Masters " affect (mental status exam) congruent, normal in tensity, constricted Leonel Masters " mood (mental status exam) pleasant, worried Leonel Masters " mental status assessment, speech activit y normal flow, normal pace, normal pressure, normal rate, normal tone, normal volume, spontaneous Leonel Masters " mental status assessment, motor activity normal gait, normal posture Leonel Masters " behavior (mental status exam) appropriat e, candid, cooperative, good eye contact, polite, responsive, tearful Leonel Masters " mental appearance (mental status exam) a dequate hygiene, appropriate dress, looks like stated age, neat Leonel Masters anxiety worry a lot, sleep disturbance, irritability Leonel Masters " mental status assessment, judgment good Leonel Masters " insight (mental status exam) good Leonel Masters " Mental Status Exam: intelligence adequat e fund of information, intact memory processes, oriented to person, oriented to place, oriented to time, oriented to situation, oriented to reality, average Leonel Masters " hallucinations none Leonel Masters " thought content (mental status exam) (E&M) lucid Leonel Masters " mental status assessment, process able to abstra ct, goal-directed, logical Leonel Masters " mental status assessment, sensorium alert, atten tive, clear Leonel Masters " affect (mental status exam) congruent, normal in tensity, constricted Leonel Masters " mood (mental status exam) pleasant, worried Leonel Masters " mental status assessment, speech activit y normal flow, normal pace, normal pressure, normal rate, normal tone, normal volume, spontaneous Leonel Masters " mental status assessment, motor activity normal gait, normal posture Leonel Masters " behavior (mental status exam) appropriat e, candid, cooperative, good eye contact, polite, responsive, tearful Leonel Masters " mental appearance (mental status exam) a dequate hygiene, appropriate dress, looks like stated age, neat Leonel Masters MEDICAL EQUIPMENT No Information Available FAMILY HISTORY No Information Available INSURANCE PROVIDERS Payer name Policy type / Coverage type Covered part y ID ALLIED BENEFITS [employer] insurance [employer] [id number] [facility] [id number] [employer] Medicaid [id number] ADVANCE DIRECTIVES No Information Available TREATMENT PLAN Date Name Est Patient Detailed - 83059 Est Patient Detailed - 70031 Diagnostic evaluation with lars Rodriguez 68901 Est Patient Exp Problem - 99 213 Est Patient Exp Problem - 99 213 PPD - In House Admin of Vaccine - Injection - 1 Est Patient Nurse - Only Vis it - 43807 Est Patient Exp Problem - 99 213 Est Patient Exp Problem - 99 213 Psychotherapy 45 (38-52*) mi n - [id number] (with patient and/or family member) Est Patient Exp Problem - 99 213 Est Patient Exp Problem - 99 213 Diagnostic evaluation (no me dical) - 56006 Est Patient Exp Problem - 99 213 Diagnostic evaluation with lars jones - 87436 PPD - InHouse Admin of Vaccine - Injection - 1 Est Patient Nurse - Only Vis it - 37249 HISTORY OF PROCEDURES Procedure Date Procedure Name Provider Procedure Notes Status Diagnostic evaluation with medical - 61917 Leonel Masters completed PPD - In House Aurdis Harley completed Psychotherapy 45 (38-52*) mi n - [phone] (with patient and/or family member) Edilberto Marquez completed Diagnostic evaluation (no medical) - 40490 Edilberto Marquez completed Diagnostic evaluation with medical - 15801 Leonel Oneals completed PPD - InHouse Aurdis Harley completed GOALS No Information Available HEALTH CONCERNS No Information Available
--- OUTSIDE RECORDS SUMMARY | 2020-01-22 21:17 | XMS REPORT | Summary of Care ---
Author Organization Unknown Address Unknown Phone Unavailable Encounter [facility]le(BERNARDA) [id number] Date(s): 03/03/14 - 03/03/[address] Discharge Disposition: Home Physician Attending: Joseline Chua MD Physician_Referring: Joseline Chua MD Reason for Visit FOLLOW UP Vital Signs Most recent to 1 oldest [Reference Range]: Height 157.48 cm (03/03/14 10:50 AM) Systolic Blood 119 mmHg Pressure [90-140 (03/03/14 10:50 AM) mmHg] Diastolic Blood 86 mmHg Pressure [60-90 (03/03/14 10:50 AM) mmHg] Peripheral Pulse 64 bpm Rate [60-100 bpm] (03/03/14 10:50 AM) Weight 87 kg (03/03/14 10:50 AM) Body Mass Index 35.08 m2 (03/03/14 10:50 AM) Problem List Condition Effective Dates Status Health Status Informan t Anal Active fissure(Confirmed) Asthma(Confirmed) Active Diverticulum(Confirm Resolved ed) Fibroids(Confirmed) Active GERD - Active Gastro-esophageal reflux disease(Confirmed) Hemorrhoids(Confirme Active d) Internal Resolved hemorrhoid(Confirmed ) Migraine(Confirmed) Active Allergies, Adverse Reactions, Alerts Substance Reaction Severity Status amoxicillin Active clindamycin Hives Severe Active codeine Active Tylenol Active Medications No data available for this section Medications Administered During Your Visit No data available for this section Immunizations Vaccine Date Refusal Reason influenza virus vaccine, inactivated 04/11/13 pneumococcal 23-valent vaccine 04/11/13 Procedures Procedure Type Body Site Date of Procedure Related Diag nosis 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 2Patient is single with three children. 3Patient denies alcohol use.
--- OUTSIDE RECORDS SUMMARY | 2020-01-22 21:17 | XMS REPORT | Continuity of Care Document ---
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 Office Visit Leonel Joseph [facility] Behavioral Health Encounter/[id number] [facility] 2013-08-31 00:00:00 2013-08-31 00:00:00 Office Visit Samina Corral Kassandra [facility] Adult Medicine Encounter/[id number] [facility] 2013-07-20 00:00:00 2013-07-20 00:00:00 Office Visit Leonel Flores Miguel [facility] Behavioral Health Encounter/[id number] [facility] 2013-06-25 00:00:00 2013-06-25 00:00:00 Office Visit Edilberto Marquez [facility] Behavioral Health Encounter/[id number] [facility] 2013-06-05 14:45:21 2013-06-05 14:45:20 Outpatient [facility]IE [facility] [id number] 2013-06-05 00:00:00 2013-06-05 00:00:00 Office Visit Ken Wallis [facility] Encounter/[id number] [facility] 2013-06-03 00:00:00 2013-06-03 00:00:00 Office Visit Leonel Flores Ruben [facility] Behavioral Health Encounter/[id number] [facility] 2013-06-02 10:19:00 2013-06-02 23:59:00 Outpatient MHIE MHIE [id number] [facility] 2013-05-12 09:20:33 2013-05-12 09:20:32 Outpatient MHIE [facility]IE [id number] 2013-05-11 09:16:03 2013-05-11 09:16:02 Outpatient MHIE MHIE [id number] 2013-05-05 00:00:00 2013-05-05 00:00:00 Office Visit Leonel Joseph [facility] Behavioral Health Encounter/[id number] [facility] 2013-05-05 00:00:00 2013-05-05 00:00:00 Office Visit Leonel Joseph [facility] Behavioral Health Encounter/[id number] [facility] 2013-05-05 00:00:00 2013-05-05 00:00:00 Office Visit Leonel Flores Thida [facility] Behavioral Health Encounter/[id number] [facility] 2013-04-13 07:45:08 2013-04-13 07:45:07 Outpatient MHIE MHIE [id number] 2013-04-06 15:15:17 2013-04-06 15:15:16 Outpatient MHIE [facility]IE [id number] 2013-03-25 15:45:51 2013-03-25 15:45:50 Outpatient MHIE MHIE [id number] 2013-03-25 12:00:20 2013-03-25 12:00:20 Outpatient MHIE MHIE [id number] 2013-03-18 18:30:09 2013-03-18 18:30:09 Outpatient MHIE MHIE [id number] 2013-03-16 16:15:15 2013-03-16 16:15:14 Outpatient MHIE MHIE [id number] 2013-03-12 14:45:27 2013-03-12 14:45:26 Outpatient MHIE MHIE [id number] 2013-03-05 14:00:21 2013-03-05 14:00:20 Outpatient MHIE MHIE [id number] 2013-03-05 00:00:00 2013-03-05 00:00:00 Office Visit Bruno Colbert [facility] Behavioral Health Encounter/[id number] [facility] 2012-10-08 00:00:00 2012-10-08 00:00:00 Office Visit Kianna Souza [facility] Encounter/[id number] [facility] Results This patient has no known results.
--- OUTSIDE RECORDS SUMMARY | 2020-01-22 21:17 | XMS REPORT ---
Author Author MAXIMILIAN CHANDRA Organization Unknown Address Unknown Phone Care Team Providers Care Commanding Officer Homicide Squad Name Role Phone JEREMÍAS CHANDRA PP Unavailable [...] No Advance Directives available. Encounters * AUDIT 06/05/2013
--- OUTSIDE RECORDS SUMMARY | 2020-01-22 21:17 | XMS REPORT ---
Author MAXIMILIAN Bergman Organization Unknown Address Unknown Phone Care Team Providers Care Blower Operator Name Role Phone [place] Davis PP Unavailable Reason for Referral No Reason [...] For: Screening Exam STD (V74.5); (Active) * Menorrhagia (626.2); (Active) * Dysmenorrhea (625.3); (Active) * Palpitations (785.1); (Active) * Colonoscopy (Fiberoptic) Screening (V76.51); (Active) Medication * Topiramate 50 MG Oral Tablet; TAKE 1 TABLET TWICE DAILY.; Start Date: 03/04/2013; End Date: (Active) * Albuterol Sulfate (2.5 MG/3ML) 0.083% Inhalation Nebulization Solution; USE DIRECTED.; Start Date: 03/03/2013 (Active) * Pulmicort Flexhaler 180 MCG/ACT Inhalation [...] No Advance Directives available. Encounters * AUDIT 03/12/2013 * EST, Provider: ENRIQUE CABRERA, Status: Daniele, Time: 10:30 AM 04/28/2013
--- OUTSIDE RECORDS SUMMARY | 2020-01-22 21:17 | XMS REPORT ---
Author Author MAXIMILIAN VICTORIA Organization Unknown Address Unknown Phone Care Team Providers Care Sagger Filler Name Role Phone ABDON VICTORIA PP Unavailable Reason for Referral No Reason [...] No Advance Directives available. Encounters * AUDIT 10/12/2013 * EST, Provider: ABDON VICTORIA, Status: Daniele, Time: 9:15 AM 10/23/2013
--- OUTSIDE RECORDS SUMMARY | 2020-01-22 21:17 | XMS REPORT | CCD ---
Author Author Auto MAXIMILIAN Brady Organization [facility] Address Unknown Phone Unavailable Care Team Providers Care School Clerk Name Role Phone Joseline Chua RP Allergies, Adverse Reactions, Alerts Substance Reaction Status amoxicillin Active clindamycin Hives Active codeine Active Tylenol Active Problem List Condition Effective Dates Status Asthma Active Fibroids Active GERD - Gastro-esophageal reflux disease Active Migraine Active Medications Medication Instructions Start Date End Date Status Xylocaine Jelly 2% 0.1 gm = 5 ml, TOP, PRN, Bowel 06/02/2013 Ordered topical gel with Movements, # 30 ml, 0 Refil l(s) applicator influenza virus 0.5 ml, Route: IM, Drug Form: SUSP, 04/11/2013 04/11/2013 Completed vaccine, inactivated Start date: 04/11/13 9:00:0 0, Stop date: 04/11/13 9:00:00 pneumococcal 0.5 ml, Route: IM, Drug Form: INJ, 04/11/2013 Completed 23-valent vaccine Start date: 04/11/13 9:00:0 0, Stop date: 04/11/13 9:00:00 nitroglycerin 2% 0.5 inch, TOP, BID, # 30 gm, 0 06/02/2013 Ordered topical ointment Refill(s) Immunizations Vaccine Date Status influenza virus vaccine, inactivated 04/11/2013 [facility] (Verified) pneumococcal 23-valent vaccine 04/11/2013 Auth (V erified) Vital Signs Most recent to oldest [Reference Range]: 1 Height 157.48 cm (06/02/2013 10:39:00) Systolic Blood Pressure [90-140 mmHg] 111 mmHg (06/02/2013 10:40:00) Diastolic Blood Pressure [60-90 mmHg] 65 mmHg (06/02/2013 10:40:00) Peripheral Pulse Rate [60-100 bpm] 63 bpm (06/02/2013 10:40:00) Weight 87.727 kg (06/02/2013 10:39:00)
--- OUTSIDE RECORDS SUMMARY | 2020-01-22 21:17 | XMS REPORT | Summary of Care ---
Author Organization Unknown Address Unknown Phone Unavailable Encounter [facility]riele(BERNARDA) [id number] Date(s): 05/19/14 - 05/19/[address] Discharge Disposition: Home Physician Attending: Joseline Chua MD Physician_Referring: Joseline Chua MD Reason for Visit HAVING PAINS Vital Signs Most recent to 1 oldest [Reference Range]: Height 157.48 cm (05/19/14 11:01 AM) Systolic Blood 106 mmHg Pressure [90-140 (05/19/14 11:01 AM) mmHg] Diastolic Blood 72 mmHg Pressure [60-90 (05/19/14 11:01 AM) mmHg] Peripheral Pulse 59 bpm Rate [60-100 bpm] *LOW* (05/19/14 11:01 AM) Weight 85.795 kg (05/19/14 11:01 AM) Body Mass Index 34.59 m2 (05/19/14 11:01 AM) Problem List Condition Effective Dates Status Health Status Informan t Abdominal Active pain(Confirmed) Anal Active fissure(Confirmed) Asthma(Confirmed) Active Diverticulum(Confirm Resolved ed) Fibroids(Confirmed) Active GERD - Active Gastro-esophageal reflux disease(Confirmed) Hemorrhoids(Confirme Active d) Internal Resolved hemorrhoid(Confirmed ) Migraine(Confirmed) Active Allergies, Adverse Reactions, Alerts Substance Reaction Severity Status amoxicillin Active clindamycin Hives Severe Active codeine Active Tylenol Active Medications clindamycin-tretinoin topical 0 Refill(s) Start Date: 05/19/14 Status: Ordered gabapentin 400 mg oral capsule 0 Refill(s) Start Date: 05/19/14 Status: Ordered naproxen 500 mg oral tablet 500 mg = 1 tab, PO, BID, Pain, # 30 tab, 0 Refill(s) Start Date: 05/19/14 Status: Ordered NexIUM 40 mg oral delayed release capsule 40 mg = 1 cap, PO, BID, # 60 cap, 1 Refill(s), Pharmacy: [place], [place] Start Date: 05/19/14 Status: Ordered NexIUM 40 mg oral delayed release capsule 40 mg = 1 cap, PO, Daily, # 15 cap, 0 Refill(s), other Start Date: 05/19/14 Status: Ordered NexIUM 40 mg oral delayed release capsule 40 mg = 1 cap, PO, Daily, # 30 cap, 0 Refill(s) Start Date: 05/19/14 Status: Ordered ProAir HFA 90 mcg/inh inhalation aerosol with adapter 2 puff, INHALATION, Q4H, for wheezing, # 9 gm, 0 Refill(s) Start Date: 05/19/14 Status: Ordered sucralfate 1 g/10 mL oral suspension 1 gm = 10 ml, PO, Before Meals & Bedtime, # 560 mL, 0 Refill(s), Pharmacy: [place], [place] Start Date: 05/19/14 Stop Date: 06/02/14 Status: Ordered trazodone 50 mg oral tablet 0 Refill(s) Start Date: 05/19/14 Status: Ordered Medications Administered During Your Visit No data [...]
== END 2020-01-22 13:26 | disposition home or self-care (01) ==
LOC: FSED 11:52
DX: B34.9 Viral infection, unspecified (principal); R05 Cough; J45.909 Unspecified asthma, uncomplicated; Z85.841 Personal history of malignant neoplasm of brain
CPT/HCPCS: 99283